=== PATIENT | male | born 1990 | race Caucasian/White ===

== ENCOUNTER 2023-05-02 02:25 | Emergency (ER) | payer OTHER ==
[~2023-05-02] VITALS: Ht 177.8 cm; Wt 86.2 kg
[2023-05-02 02:28] VITALS: BP 133/79; PULSE 117; RESP 17; TEMP 97.9; O2SAT 97
[2023-05-02 02:31] VITALS: O2SAT 98
[2023-05-02] MEDS: NACL 0.9% 1,000 ML IV ONE ×2 (03:15→04:16)
[2023-05-02 03:19] LABS: BASOPHILS # (AUTO) 0.1 K/uL (0.00-0.22); BASOPHILS % (AUTO) 0.7 % (0.0-2.0); EOSINOPHILS # (AUTO) 0.1 K/uL (0-0.4); EOSINOPHILS % (AUTO) 0.9 % (0.0-4.0); HEMATOCRIT 43.2 % (36-52); LYMPHOCYTES # (AUTO) 1.1 K/uL (2.0-11.5); LYMPHOCYTES % (AUTO) 13.5 % (20.5-51.1); MEAN CORPUSCULAR HEMOGLOBIN 29 pg (27-31); MEAN CORPUSCULAR HGB CONC 35 g/dL (33-37); MEAN CORPUSCULAR VOLUME 84.1 fL (80-94); MONOCYTES # (AUTO) 0.7 K/uL (0.8-1.0); MONOCYTES % (AUTO) 8.6 % (1.7-9.3); NEUTROPHILS % (AUTO) 76.3 % (42.2-75.2); PLATELET COUNT (AUTO) 275 K/uL (140-450); RED BLOOD CELL COUNT(AUTO) 5.14 MIL/uL (4.20-6.10); RED CELL DISTRIBUTION WIDTH 13.2 % (11.6-13.7); WHITE BLOOD COUNT (AUTO) 7.8 K/uL (4.8-10.8)
[2023-05-02 03:28] LABS: CALCIUM 9.3 mg/dL (8.5-10.1); CREATININE 0.7 mg/dL (0.6-1.3)
[2023-05-02] MEDS: LIDOCAINE MPF 1% 10 MG/ML VIAL INJ ONE (05:59)
[2023-05-02] MEDS ORDERED: SULF-59 PO (06:17)
[2023-05-02] MEDS ORDERED: IBUP-2213 PO (06:20)
[2023-05-02] MEDS ORDERED: ACET-10509 PO (06:20)
[2023-05-02] MEDS: INSULIN REGULAR, HUMAN 100 UNIT/ML VIAL SUBQ ONE (06:42)
[2023-05-02 07:39] VITALS: BP 123/77; PULSE 85; RESP 17; TEMP 98.5; O2SAT 95
== END 2023-05-02 07:40 | disposition home or self-care (01) ==
LOC: MED 02:25
DX: L02.31 Cutaneous abscess of buttock (principal); Z79.899 Other long term (current) drug therapy
CPT/HCPCS: 10060; 36415; 80048; 85025; 96360; 96361; 96372; 99284; J1815; J7030